=== PATIENT | female | born 1965 | race Caucasian/White ===

== ENCOUNTER → 2018-06-06 | Outpatient (CLI) | payer BC ==
[2018-06-06 08:25] LABS: HAAIG REFLEX REFLEX FILED
[2018-06-06 09:30] LABS: HEPATITIS B SURFACE ANTIGEN NEGATIVE (NEGATIVE)
[2018-06-06 09:48] LABS: HEPATITIS B CORE ANTIBODY NEGATIVE (NEGATIVE); HEPATITIS C VIRAL ANTIBODY NEGATIVE (NEGATIVE)
== END | disposition home or self-care (01) ==
LOC: LAB 08:10
DX: Z00.00 Encounter for general adult medical examination without abnormal findings (principal)
CPT/HCPCS: 86704; 86709; 86787; 86803; 87340

== ENCOUNTER → 2018-06-15 | Outpatient (CLI) | payer BC ==
[2018-06-15 10:45] LABS: HEPATITIS B SURFACE ANTIBODY POSITIVE (NEGATIVE)
== END | disposition home or self-care (01) ==
LOC: LAB 07:28
DX: Z23 Encounter for immunization (principal)
CPT/HCPCS: 86706

== ENCOUNTER → 2018-07-23 | Outpatient (CLI) | payer BC ==
[2018-07-25 12:52] LABS: NIL 0.15 IU/mL; QUANTIFERON(R)-TB GOLD NEGATIVE (NEGATIVE); TB-NIL <0.00 IU/mL; TB2-NIL <0.00 IU/mL
== END | disposition home or self-care (01) ==
LOC: LAB 14:13
DX: Z00.00 Encounter for general adult medical examination without abnormal findings (principal)
CPT/HCPCS: 86480

== ENCOUNTER 2018-09-27 08:42 | Emergency (ER) | payer OTHER, BC ==
[2018-09-27] MEDS: IBUPROFEN 800 MG TAB PO (09:00)
== END 2018-09-27 10:19 | disposition home or self-care (01) ==
LOC: FTE 10:19
DX: S80.02XA Contusion of left knee, initial encounter (principal); W19.XXXA Unspecified fall, initial encounter; Y92.89 Other specified places as the place of occurrence of the external cause
CPT/HCPCS: 73562; 99283-25